=== PATIENT | female | born 1965 | race Caucasian/White ===

== ENCOUNTER → 2018-10-24 | Outpatient (CLI) | payer OTHER ==
[~2018-10-24] MED LIST: NORVASC 10MG10 MG PO
== END ==
LOC: COL.RAD 13:05
DX: M16.11 Unilateral primary osteoarthritis, right hip (principal)
CPT/HCPCS: A9585; J3301; Q9967

== ENCOUNTER → 2019-06-07 | Outpatient (CLI) | payer OTHER | LOC: MC.RAD 10:58 | DX: Z12.31 Encounter for screening mammogram for malignant neoplasm of breast (principal) ==